=== PATIENT | male | born 1985 | race Caucasian/White ===

== ENCOUNTER 2021-07-28 21:40 | Emergency (ER) | payer OTHER ==
[2021-07-28 21:49] VITALS: BP 131/85; PULSE 71; TEMP 98.8; BMI 25.7
== END 2021-07-28 22:53 | disposition home or self-care (01) ==
LOC: FER 21:40
DX: M79.5 Residual foreign body in soft tissue (principal)
CPT/HCPCS: 73630-TC-RT-FY; 99283-25

== ENCOUNTER 2022-04-05 13:25 | Emergency (ER) | payer OTHER ==
[2022-04-05] MEDS ORDERED: ACETAMINOPHEN 1000 MG/100 ML BAG IVPB ONE (13:46)
[2022-04-05] MEDS ORDERED: SODIUM CHLORIDE 0.9% 500 ML INFUS.BAG IV ONE (13:46)
[2022-04-05 13:54] VITALS: BP 137/72; PULSE 82; RESP 18; TEMP 99.2; BMI 25.7
[2022-04-05] MEDS ORDERED: ACETAMINOPHEN INJECTION 100 ML IVPB ONE (13:54)
[2022-04-05 14:23] LABS: HEMATOCRIT 45.8 % (35.4-49); HEMOGLOBIN 16.4 G/dL (11.7-16.9); MCH 31.6 pg (25.7-33.7); MCHC 35.7 g/dl (32.0-35.9); MEAN CELL VOLUME 88.5 fl (80-96); MEAN PLT VOLUME 6.7 fl (7.5-11.1); RBC 5.17 10^6/uL (4.00-5.60); WHITE BLOOD COUNT 5.4 10^3/uL (4.0-10.8)
[2022-04-05 14:30] LABS: INR 1.07 (0.83-1.09); PROTHROMBIN TIME (PATIENT) 12.3 SEC (9.7-13.0)
[2022-04-05 14:33] LABS: ACTIVATED PTT 30.3 SECONDS (25.2-36.5)
[2022-04-05 14:39] LABS: ALBUMIN 4.7 g/dl (3.4-5.0); CALCIUM 9.5 mg/dl (8.5-10); MAGNESIUM 2.3 mg/dL (1.8-2.4); TOT PROT 8.4 g/dl (6.4-8.2)
[2022-04-05 15:14] LABS: PLATELET ESTIMATE ADEQUATE
== END 2022-04-05 15:49 | disposition home or self-care (01) ==
LOC: FER 13:25
PROC: 3E033GC Introduction of Other Therapeutic Substance into Peripheral Vein, Percutaneous Approach (ICD-10-PCS; principal; 2022-04-05)
DX: R10.31 Right lower quadrant pain (principal)
CPT/HCPCS: 0241U-QW; 36415; 74177-TC; 80053; 81003; 83605; 83690; 83735; 85027; 85610; 85730; 86850; 86900; 86901; 87086; 96374; 99285-25; Q9967